=== PATIENT | female | born 1970 | race Caucasian/White ===

== ENCOUNTER → 2017-04-01 | Outpatient (CLI) | payer OTHER, BC ==
--- NOTE | 2017-04-01 09:05 | REPMRS ---
Patient History The patient states she had a clinical breast exam in 2016. Patient had first child at age 31. Family history of ovarian cancer in maternal grandmother at age 50 or over. Taking hormonal contraceptives for 14 years. Digital Mammo Screening Bilat: April 01, 2017 - Exam #: [id number] Bilateral CC and MLO view(s) were taken. Technologist: Tamika Senior, Technologist Prior study comparison: March 24, 2016, bilateral digital mammo screening bilat performed at [facility]. March 12, 2015, bilateral digital mammo screening bilat performed at [facility]. March 11, 2014, bilateral bilat screen digital mammo, performed at [facility] ([facility]). FINDINGS: There are scattered fibroglandular densities. There has been no change in the appearance of the mammogram from the prior studies. There is a mild amount of scattered fibroglandular density which is fairly symmetric. There is no interval development of dominant mass, architectural distortion, or clustered microcalcification suggestive of malignancy. ASSESSMENT: BI-RADS/ACR category 1 mammogram. Negative. Recommendation Routine screening mammogram in 1 year (for women over age 40). This mammogram was interpreted with the aid of an FDA-approved computer-aided dectection system. Electronically Signed By: Jhonatan Lee MD 04/01/17 0904
== END ==
LOC: M RAD 08:20
PROVIDERS: ATTEND Nurse Practitioner Adult Health
DX: Z12.31 Encounter for screening mammogram for malignant neoplasm of breast (principal); Z80.41 Family history of malignant neoplasm of ovary; Z79.3 Long term (current) use of hormonal contraceptives

== ENCOUNTER → 2018-04-03 | Outpatient (CLI) | payer OTHER, BC | LOC: M RAD 09:15 | DX: Z12.31 Encounter for screening mammogram for malignant neoplasm of breast (principal); N60.31 Fibrosclerosis of right breast; N60.32 Fibrosclerosis of left breast | CPT/HCPCS: 77067 ==

== ENCOUNTER → 2019-04-11 | Outpatient (CLI) | payer OTHER, BC ==
--- NOTE | 2019-04-11 09:53 | REP ---
BILATERAL SCREENING DIGITAL MAMMOGRAM WITH 3D TOMOSYNTHESIS: There are no palpable abnormalities or other breast complaints. The the patient states she had a clinical breast examination March,. The Tyrer-Cuzick Score is: 13.2% . Comparison is 03/11/2014. There are scattered areas of fibroglandular density. There is no dominant mass, micro calcific cluster or architectural distortion that would indicate malignancy. There are no additional findings on 3D tomosynthesiss. There is no change from the prior study. Impression: BIRADS/ACR category 1 mammogram. Negative. Recommendation: Routine annual screening mammography. This mammogram was interpreted with the aid of a FDA approved computer-aided detection system. A. Negative mammogram reports should not delay biopsy if a dominant or clinically suspicious mass is present. B. Not all breast cancers are identified by mammography or tomosynthesis. C. Adenosis and dense breasts may obscure an underlying neoplasm. Patient letter M1. Electronically Signed by Gavin Villalta MD 04/11/2019 09:45 A
== END ==
LOC: M RAD 08:09
PROVIDERS: ATTEND Nurse Practitioner
DX: Z12.31 Encounter for screening mammogram for malignant neoplasm of breast (principal)

== ENCOUNTER → 2020-04-29 | Outpatient (CLI) | payer OTHER, BC ==
--- NOTE | 2020-04-29 10:19 | REPMRS ---
Patient History The patient states she had a clinical breast exam in March 2020. Family history of ovarian cancer at age 50 or over in maternal grandmother. Taking hormonal contraceptives for 14 years. Diagnostic Bilateral Mammo: April 29, 2020 - Exam #: [id number] Bilateral CC and MLO view(s) were taken. Technologist: Tamika Senior Technologist Prior study comparison: April 11, 2019, bilateral digital mammo screening bilat, performed at [facility]. April 03, 2018, bilateral digital mammo screening bilat, performed at [facility]. April 01, 2017, bilateral digital mammo screening bilat, performed at [facility]. FINDINGS: There are scattered fibroglandular densities. The Volpara volumetric breast density category is:B. In this patient who reports a 1-2 cm non-raised area of recurrent skin discoloration in the upper-outer quadrant of the left breast, a tangential view of the affected skin was obtained. This shows no abnormality. No skin thickening or contour deformity is seen. There has been no change in the appearance of the mammogram from the prior studies. There is a mild amount of scattered fibroglandular density which is fairly symmetric. There is no interval development of dominant mass, architectural distortion, or grouped microcalcification suggestive of malignancy. 3-D tomosynthesis shows no additional findings. Assessment: BI-RADS/ACR category 1 mammogram. Negative Mammogram. Recommendation Clinical correlation of the left breast regarding skin lesion reported by the patient. Routine screening mammogram of both breasts in 1 year (for women over age 40). This patient's Lifetime Breast Cancer Risk is estimated at 13.0 %. This mammogram was interpreted with the aid of an FDA-approved computer-aided dectection system. Electronically Signed By: Jhonatan Lee MD 04/29/20 1019
== END ==
LOC: M WHC 08:28
PROVIDERS: ATTEND Nurse Practitioner Adult Health
DX: Z12.31 Encounter for screening mammogram for malignant neoplasm of breast (principal); Z79.3 Long term (current) use of hormonal contraceptives
CPT/HCPCS: 77066; G0279

== ENCOUNTER → 2021-05-13 | Outpatient (CLI) | payer OTHER, BC ==
--- NOTE | 2021-05-13 14:01 | REPMRS ---
Patient History The patient states she had a clinical breast exam in March 2021. Patient is postmenopausal and had first child at age 31. Family history of ovarian cancer at age 50 or over in maternal grandmother. Took hormonal contraceptives for 14 years. Pf[employer] vaccine 09/19/2020 left arm 10/10/20 left arm. 10 lb unintentional weight gain. Patient states no breast complaints today. Patient has signed MRS History Sheet. Digital Woman Screen Mammo: May 13, 2021 - Exam #: [id number] Bilateral CC and MLO view(s) were taken. Technologist: RT Farhan Prior study comparison: April 29, 2020, diagnostic bilateral mammo performed at [facility]. April 11, 2019, bilateral digital mammo screening bilat, performed at [facility]. FINDINGS: There are scattered fibroglandular densities. Screening. Digital screening (2D) mammography was performed bilaterally in the CC and MLO projections. Additionally, breast tomosynthesis (3D mammography) was performed bilaterally in the CC and MLO projections. Todays exam was compared to the prior exam/exams. By history, the patient has no complaints of a palpable breast abnormality or other significant breast complaints. The Volpara volumetric breast density category is B, there are scattered areas of fibroglandular densities. The breasts are unchanged in size and shape. There are no jose-soft tissue densities or spiculated masses. There is no internal architectural distortion. There are no suspicious jose-calcific clusters. Skin thickening or nipple retraction is not present. IMPRESSION: BI-RADS Category 2- Benign Findings. There is no evidence of malignant alteration of the breasts. Followup examination recommended in one year. The lifetime Tyrer-Cuzick score is 13.4% This mammogram was read with the assistance of [employer],an FDA approved computer aided detection system for mammography. Negative x-ray reports should not delay surgical consultation if a dominant or clinically suspicious mass is present. Not all breast cancers can be identified by mammography. Therefore, we recommend that you continue to perform regular breast self-examination and physical examination and then promptly contact your physician of any concerns or changes. Adenosis and dense breasts may obscure an underlying neoplasm. No significant changes when compared with prior studies. Assessment: BI-RADS/ACR category 2 mammogram. Benign Findings. Recommendation Routine screening mammogram of both breasts in 1 year. Electronically Signed By: Oracio Schneider MD 05/13/21 [id number]
== END ==
LOC: M WHC 11:05
PROVIDERS: ATTEND Nurse Practitioner Adult Health
DX: Z12.31 Encounter for screening mammogram for malignant neoplasm of breast (principal); Z80.41 Family history of malignant neoplasm of ovary

== ENCOUNTER → 2022-05-14 | Outpatient (CLI) | payer OTHER, BC | LOC: M WHC 08:25 | PROVIDERS: ATTEND Obstetrics & Gynecology Obstetrics | DX: Z01.419 Encounter for gynecological examination (general) (routine) without abnormal findings (principal) ==

== ENCOUNTER → 2023-05-16 | Outpatient (CLI) | payer OTHER, BC | LOC: M WHC 08:27 | PROVIDERS: ATTEND Obstetrics & Gynecology Obstetrics | DX: Z12.31 Encounter for screening mammogram for malignant neoplasm of breast (principal) ==

== ENCOUNTER → 2024-05-18 | Outpatient (CLI) | payer OTHER, BC | LOC: M WHC 14:53 | PROVIDERS: ATTEND Physician Assistant | DX: Z12.31 Encounter for screening mammogram for malignant neoplasm of breast (principal) ==

== ENCOUNTER → 2025-05-24 | Outpatient (CLI) | payer OTHER, BC | LOC: M WHC 08:33 | PROVIDERS: ATTEND Physician Assistant | DX: Z12.31 Encounter for screening mammogram for malignant neoplasm of breast (principal); R92.313 Mammographic fatty tissue density, bilateral breasts ==